=== PATIENT | male | born 1950 | race Hispanic/Latino ===

== ENCOUNTER 2016-07-09 09:49 | Inpatient (IN) | payer OTHER ==
--- NOTE | 2016-07-09 10:54 | ED PDOC ---
Arrival/HPI - General Historian: Patient - History of Present Illness Time/Duration: 4-6 hours Symptom Onset: Sudden Symptom Course: Resolved Quality: Pressure, Throbbing Severity Level: 5 Activities at Onset: Rest Context: Home - General Chief Complaint: Palpitations Time Seen by Provider: 07/09/16 10:01 - History of Present Illness Narrative History of Present Illness (Text): 07/09/16 10:51 This is a 65Y M with PMH of HLD and thalassemia minor who came to ED for palpitations for 4hrs this morning. He reports it started at 3am and woke him out of his sleep. He was seeing flashing lights at the time. He has had SVT in the past after drinking too many caffinated drinks a few years ago. He denies having excessive caffeine, drugs or alcohol before he went to bed. The patient says that he did not have chest pain at the time or SOB, but did have diaphoresis. The palpitations went away on their own. At this time he denies CP , SOB, n/v/d, numbness/tingling or vision changes. 07/09/16 11:32 (Margaret Shaver) Past Medical History - Provider Review Nursing Documentation Reviewed: Yes - Infectious Disease Hx of Infectious Diseases: None - Tetanus Immunization Tetanus Immunization: Unknown - Cardiac Hx Pacemaker: No Other/Comment: One episode of SVT in the past. - Pulmonary Hx Respiratory Disorders: No - Neurological Hx Paralysis: No - HEENT Hx HEENT Disorder: (WEARS RX GLASSES) - Renal Hx Renal Disorder: No - Endocrine/Metabolic Hx Endocrine Disorders: No - Hematological/Oncological Hx Blood Transfusions: No Hx Blood Transfusion Reaction: No - Integumentary Hx Dermatological Disorder: No - Musculoskeletal/Rheumatological Hx Musculoskeletal Disorders: No - Gastrointestinal Hx Gastrointestinal Disorders: No (H/O OF GI BLEED) Hx Gastroesophageal Reflux: Yes - Genitourinary/Gynecological Hx Genitourinary Disorders: No - Psychiatric Hx Emotional Abuse: No Hx Physical Abuse: No Hx Substance Use: No - Anesthesia Hx Anesthesia Reactions: No Hx Malignant Hyperthermia: No - Suicidal Assessment Feels Threatened In Home Enviroment: No Family/Social History - Physician Review Nursing Documentation Reviewed: Yes Family/Social History: No Known Family HX Smoking Status: Never Smoked Hx Alcohol Use: No Hx Substance Use: No Allergies/Home Meds Allergies/Adverse Reactions: Allergies No Known Allergies Allergy (Verified 07/09/16 10:08) Home Medications: Home Meds Medication Instructions Recorded Confirmed Rosuvastatin Calcium [Crestor] 5 mg PO DAILY 11/29/15 07/09/16 Aspirin [Aspirin Chewable] 81 mg PO DAILY 07/09/16 07/09/16 Review of Systems - Physician Review All systems were reviewed & negative as marked: Yes - Review of Systems Constitutional: Normal. absent: Fevers Eyes: Vision Changes ENT: Normal. absent: Hearing Changes Respiratory: Normal. absent: SOB, Cough Cardiovascular: Palpitations. absent: Chest Pain Gastrointestinal: Normal. absent: Abdominal Pain, Diarrhea, Nausea, Vomiting Genitourinary Male: Normal. absent: Dysuria, Frequency Musculoskeletal: Normal. absent: Arthralgias Skin: Normal. absent: Rash, Pruritis Neurological: Normal. absent: Headache, Dizziness Endocrine: Diaphoresis. absent: Polyuria, Polydipsia Psychiatric: Normal. absent: Anxiety, Depression Physical Exam Vital Signs Reviewed: Yes Temperature: Afebrile Blood Pressure: Normal Pulse: Regular Respiratory Rate: Normal Appearance: Positive for: Well-Appearing, Non-Toxic, Comfortable Pain Distress: None Mental Status: Positive for: Alert and Oriented X 3 - Systems Exam Head: Present: Atraumatic, Normocephalic Pupils: Present: PERRL Extroacular Muscles: Present: EOMI Conjunctiva: Present: Normal Mouth: Present: Moist Mucous Membranes Neck: Present: Normal Range of Motion Respiratory/Chest: Present: Clear to Auscultation, Good Air Exchange. No: Respiratory Distress, Accessory Muscle Use Cardiovascular: Present: Regular Rate and Rhythm, Normal S1, S2. No: Murmurs Abdomen: Present: Normal Bowel Sounds. No: Tenderness, Distention, Peritoneal Signs Back: Present: Normal Inspection Upper Extremity: Present: Normal Inspection. No: Cyanosis, Edema Lower Extremity: Present: Normal Inspection. No: Edema Neurological: Present: GCS=15, CN II-XII Intact, Speech Normal Skin: Present: Warm, Dry, Normal Color. No: Rashes Psychiatric: Present: Alert, Oriented x 3, Normal Insight, Normal Concentration Vital Signs Temp Pulse Resp BP Pulse Ox 07/09/16 12:04 72 18 108/76 100 07/09/16 10:08 98 F 72 16 96/63 L 100 Medical Decision Making Re-evaluation Time: 11:32 Reassessment Condition: Unchanged - Lab Interpretations I have reviewed the lab results: Yes Interpretation: Abnormal lab values (elevated troponin) - RAD Interpretation Inventory Planner: ED Physician - EKG Interpretation Interpreted by ED Physician: Yes Type: 12 lead EKG ED Course and Treatment: 07/09/16 10:57 Impression: This is a 65Y M with PMH HLD here for chest palpitation since this AM. DDX: SVT, Angina Plan: -- EKG -- CBC, CMP, Troponin --Reassess Prior Visits: Notes and results from previous visits were reviewed. 07/09/16 12:20 Progress Note: Patient noted to have elevated troponin. Potassium elevated. Will recheck. Spoke with Dr. Harrell who accepts the patient. 07/09/16 12:40 (Margaret Shaver) Patient Seen With Resident: In agreement with resident note. Patient was seen and evaluated with resident, came up with plan and treatment together. (Ta Fang DO) - Lab Interpretations Lab Results: 07/09/16 10:35 07/09/16 12:00 Lab Results 07/09/16 12:00: Potassium 4.6 07/09/16 10:35: TSH 3rd Generation 2.44 07/09/16 10:35: Sodium 138, Potassium 5.4 H, Chloride 103, Carbon Dioxide 29, Anion Gap 11, BUN 22 H, Creatinine 1.3, Est GFR ( Amer) > 60, Est GFR ( Non-Af Amer) 55, Random Glucose 70, Calcium 9.7, Total Bilirubin 0.6, AST 30, ALT 38, Alkaline Phosphatase 44, Lactate Dehydrogenase 372, Total Creatine Kinase 121, Troponin I 0.28 H* D, Total Protein 6.9, Albumin 4.1, Globulin 2.8, Albumin/Globulin Ratio 1.5 07/09/16 10:35: WBC 9.5 D, RBC 5.22, Hgb 10.8 L, Hct 33.3 L, MCV 63.8 L, MCH 20.7 L, MCHC 32.4, RDW 15.9 H, Plt Count 214 - RAD Interpretation Narrative RAD Interpretations (Text): 07/09/16 11:32 CXR showed no active disease. (Margaret Shaver) Radiology Orders: 07/09/16 10:21 CXR [CHEST PORTABLE] [RAD] Stat - EKG Interpretation EKG Interpretation (Text): 07/09/16 11:03 HR 70. Interval within normal limits. Sinus rhythm. (Margaret Shaver) - Medication Orders Current Medication Orders: Discontinued Medications Aspirin (Aspirin) 325 mg PO STAT STA Stop: 07/09/16 12:07 Last Admin: 07/09/16 12:15 Dose: 325 mg Disposition/Present on Arrival - Present on Arrival Any Indicators Present on Arrival: Yes History of DVT/PE: No History of Uncontrolled Diabetes: No Urinary Catheter: No History of Decub. Ulcer: No History Surgical Site Infection Following: None - Disposition Have Diagnosis and Disposition been Completed?: Yes Disposition Time: 12:10 Patient Plan: Admission - Disposition Diagnosis: Elevated troponin, NSTEMI (non-ST elevated myocardial infarction) Disposition: HOSPITALIZED Patient Problems: Current Active Problems Problem Status Onset Elevated troponin Acute NSTEMI (non-ST elevated myocardial infarction) Acute Condition: GOOD Print Language: FIJIAN Referrals: Max Cash MD [Primary Care Provider] - Follow up with primary
[2016-07-09 10:58] LABS: HEMATOCRIT 33.3 % (42.0-52.0); MEAN CELL VOLUME 63.8 fL (80.0-105.0); MEAN CORPUSCULAR HEMOGLOBIN 20.7 pg (25.0-35.0); MEAN CORPUSCULAR HGB CONC 32.4 g/dl (31.0-37.0); PLATELET COUNT 214 10^3/uL (120.0-450.0); RED CELL DISTRIBUTION WIDTH 15.9 % (11.5-14.5); WHITE BLOOD COUNT 9.5 10^3/ul (4.5-11.0)
[2016-07-09 11:04] LABS: ALB/GLOB RATIO 1.5 (1.1-1.8); ALKALINE PHOSPHATASE 44 U/L (38-133); ALT/SGPT 38 U/L (7-56); AST/SGOT 30 U/L (15-59); BILIRUBIN,TOTAL 0.6 mg/dL (0.2-1.3); BLOOD UREA NITROGEN 22 mg/dL (7-21); CALCIUM 9.7 mg/dL (8.4-10.5); CARBON DIOXIDE 29 mmol/L (21-33); CHLORIDE 103 mmol/L (98-107); GFR AFRICAN-AMERICAN > 60; GLUCOSE,RANDOM 70 mg/dL (70-110); POTASSIUM 5.4 mmol/L (3.6-5.0); SODIUM 138 mmol/L (132-148); TOTAL PROTEIN 6.9 g/dL (5.8-8.3)
[2016-07-09 11:56] LABS: TROPONIN I 0.28 ng/mL
--- NOTE | 2016-07-09 12:43 | RAD ---
HISTORY: chest pain COMPARISON: 03/31/2013 FINDINGS: LUNGS: No active pulmonary disease. PLEURA: No significant pleural effusion identified, no pneumothorax apparent. CARDIOVASCULAR: Normal. OSSEOUS STRUCTURES: No significant abnormalities. VISUALIZED UPPER ABDOMEN: Normal. OTHER FINDINGS: None. IMPRESSION: No active disease.
[2016-07-09] MEDS ORDERED: Phenylephrine 10 mg/ml Inj ONE (16:31)
[2016-07-09] MEDS ORDERED: Lidocaine 2% Inj (20ml) ONE (16:31)
[2016-07-09] MEDS ORDERED: Midazolam 2 MG/2 ML VIAL ONE (16:31)
[2016-07-09] MEDS ORDERED: Iodixanol 320 MG/ML 100 ML BOTTLE IV ONE (16:32)
[2016-07-09] MEDS ORDERED: Iohexol 350mgl/ml 50 ML ONE (16:32)
[2016-07-09] MEDS ORDERED: Eptifibatide 20 mg/10mL Inj IVP ONE (16:32)
[2016-07-09] MEDS ORDERED: Iodixanol 320 MG/ML 200 ML BOTTLE IV ONE (16:32)
[2016-07-09] MEDS ORDERED: Nitroglycerin 50mg in D5W 50 MG/250 ML BOTTLE IV ONE (16:32)
[2016-07-09] MEDS ORDERED: Bacitracin 500 Units/gm Oint Foilpak UD TOP ONE (17:47)
[2016-07-09] MEDS ORDERED: Sodium Chloride 0.9% 1,000 ML IV SCH (18:00)
--- NOTE | 2016-07-09 18:38 | CARD ---
APPROVED REPORT EKG Measurement Heart [id number] <Conclusion> Normal sinus rhythm with sinus arrhythmia Early repolarization Normal ECG
--- NOTE | 2016-07-09 18:59 | CARD ---
APPROVED REPORT Procedure(s) performed: Left Heart Catheterization HISTORY The patient is a 65 year-old male with a history of : dyslipidemia , Hx of hyperlipidemia admitted with palpitation and positive troponin( 0.28). INDICATION The indication(s) include : non-STEMI . CASE TECHNIQUE The patient was brought emergently to the Cardiac Catheterization Laboratory in a fasting state and was prepped and draped in a sterile manner. The left wrist was infiltrated with 2% Lidocaine subcutaneous anesthesia. A 6 Fr Glidesheath (Radial) sheath was inserted into the left radial artery without difficulty. Coronary angiography was performed using coronary diagnostic catheters. The left coronary system was accessed and visualized with a Diagnostic ,5 Fr JL 4 catheter. The right coronary system was accessed and visualized with a Diagnostic ,6 Fr AL 1 catheter. The left ventricle was accessed and visualized with a 5 Fr Pigtail 145 (Angled) catheter. Left ventricular/Aortic Valve gradient assessed on pullback. Left ventriculogram was performed in QUACH projection. The patient tolerated the procedure well and there were no complications associated with the procedure. Vessel Analysis The patient's coronary anatomy is left dominant. The left main coronary artery is a large size vessel without significant stenosis. The left main bifurcates to the left anterior descending and circumflex. The left anterior descending artery is a medium size vessel with intimal irregularities. The first diagonal branch is a medium size vessel with intimal irregularities. The circumflex artery is a large size vessel without significant stenosis. The first obtuse marginal branch is a medium size vessel with intimal irregularities. The second obtuse marginal branch is a small size vessel with intimal irregularities. The third obtuse marginal branch is a large size vessel without significant stenosis. The left posterior descending artery is a large size vessel without significant stenosis. The right coronary artery is a medium size vessel with intimal irregularities and without significant stenosis. Left Ventricle The left ventricle is normal in size with normal contractility. There was no cardiomyopathy. The left ventricular ejection fraction is estimated to be 65%. The left ventricular end diastolic pressure is 15 mmHg. There was no gradient across the aortic valve upon pullback. Conclusion Non obstructive CAD, intimal Irreularities ( essential Normal Coronaries) Preserved LV FX.EF-60-65%, EDP-15 Recommendations Aggressive Medical TherapyCardiac Risk Reduction Program Weight Loss Reduction Program CC: israel Cash/ Orville Harrell.
--- NOTE | 2016-07-09 20:10 | CON ---
DATE: 07/09/2016 REASON FOR CONSULTATION: Qhk-[id number] myocardial infarction, coronary artery disease. 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 Then patient came to work here but feeling not right, so in the middle of the work, patient went to the ER to check it out. Troponin came out positive at 0.28 and EKG shows questionable mild ST elevation with early repolarization. The patient denies any chest pain. PAST HISTORY: Significant for hyperlipidemia. SOCIAL HISTORY: Denies any smoking. Denies any history of alcohol abuse. ALLERGIES: No known drug allergy. CURRENT MEDICATIONS: Taking aspirin and Crestor 5 mg daily. PAST HISTORY: Also significant for patient had history of taking a high protein diet which contained a lot of sympatomimetic drugs and that causes a tachycardia. Was admitted in 03/2013. Since then, patient has no significant history. REVIEW OF SYSTEMS: a 14 point review of systems as per HPI. PHYSICAL EXAMINATION: As follows: VITAL SIGNS: Temperature afebrile, heart rate 64, blood pressure 131/73. HEENT: PERRLA. Extraocular muscles intact. NECK: Supple. No carotid bruits. No thyromegaly. CHEST: Clear to auscultation. HEART: S1, S2 regular. ABDOMEN: Soft. EXTREMITIES: Clubbing and cyanosis negative. BLOOD WORKUP: WBC 9.5, hemoglobin 10.8, hematocrit 33.3, platelet count 214. Chemistry shows sodium 130, potassium 5.4, chloride 103, carbon dioxide 20, anion gap of 24, BUN 11, creatinine 1.3. Troponin 0.28. IMPRESSION: Ucs-XK-[id number] myocardial infarction, cannot rule out underlying coronary artery disease. Non-ST myocardial infarction, cannot rule out acute coronary syndrome, suggestive of [id number] myocardial infarction. So, we will discuss with the family, discuss with the patient's brother, Artemio Bui, who is physician at [employer] agreed to take to the laborer syrup machine, so we will give 300 Plavix, aspirin and we will take to the laborer syrup machine. Further recommendation after laborer syrup machine findings. Thank you Dr. Harrell for providing us the opportunity in taking care of the patient. Mil Boogie MD cc: uW Harrell MD [id number] TT: 07/09/2016 20:10:29 Confirmation # [id number] Dictation # [id number] sn MTDD
[2016-07-09 21:27] VITALS: BMI 26.1
[2016-07-09] MEDS ORDERED: Pneumococcal 23-Valent Vaccine IM ONE (21:28)
[2016-07-09] MEDS ORDERED: Bacitracin 500 Units/gm Oint Foilpak UD ONE (23:41)
[2016-07-10 00:38] VITALS: RESP 20; O2SAT 98
[2016-07-10 06:50] VITALS: BP 118/85; PULSE 75; TEMP 97.7
[2016-07-10 06:52] LABS: ADD MANUAL DIFF? NO
[2016-07-10 06:59] LABS: BASO # 0.04 K/mm3 (0.0-2.0); BASO % 0.5 % (0.0-3.0); EOS # 0.3 (0.0-0.7); EOS % 3.4 % (1.5-5.0); GRAN # 5.18 (1.4-6.5); GRAN % 61.2 % (50.0-68.0); HEMATOCRIT 32.7 % (42.0-52.0); LYMPH # 2.4 (1.2-3.4); LYMPH % 28.4 % (22.0-35.0); MEAN CELL VOLUME 63.5 fL (80.0-105.0); MEAN CORPUSCULAR HEMOGLOBIN 20.6 pg (25.0-35.0); MEAN CORPUSCULAR HGB CONC 32.4 g/dl (31.0-37.0); MONO # 0.6 (0.1-0.6); MONO % 6.5 % (1.0-6.0); PLATELET COUNT 223 10^3/uL (120.0-450.0); WHITE BLOOD COUNT 8.5 10^3/ul (4.5-11.0)
[2016-07-10 07:14] LABS: ALB/GLOB RATIO 1.4 (1.1-1.8); ALKALINE PHOSPHATASE 44 U/L (38-133); ALT/SGPT 38 U/L (7-56); AST/SGOT 31 U/L (15-59); BILIRUBIN,TOTAL 0.6 mg/dL (0.2-1.3); BLOOD UREA NITROGEN 18 mg/dL (7-21); CALCIUM 9.2 mg/dL (8.4-10.5); CARBON DIOXIDE 28 mmol/L (21-33); CHLORIDE 110 mmol/L (98-107); CHOLESTEROL 136 mg/dL (130-200); GFR AFRICAN-AMERICAN > 60; GLUCOSE,RANDOM 92 mg/dL (70-110); MAGNESIUM 2.1 mg/dL (1.7-2.2); PHOSPHOROUS 3.6 mg/dL (2.5-4.5); POTASSIUM 4.9 mmol/L (3.6-5.0); SODIUM 143 mmol/L (132-148); TOTAL PROTEIN 6.6 g/dL (5.8-8.3)
[2016-07-10 10:40] LABS: IRON 59 ug/dL (45-180)
--- NOTE | 2016-07-10 11:12 | PN ---
DATE: 07/10/2016 REASON FOR CONSULTATION: Tgx-[id number] myocardial infarction, positive troponin, acute coronary syn drome, status post cardiac catheterization, nonobstructive coronary artery disease. 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 Troponin 0.28. The patient was taken ____ EKG shows a questionable history of ST elevation versus more of ST elevation with early repolarization. EKG sh ows questionable history of ST elevation 0.5 mm versus early repolarization. The patient was taken t o the [employer] [facility] laborer yesterday. Cardiac catheterization revealed nonobstructive CAD, luminal ____ no flow obstructive stenosis, preserved LV function. Denies any chest pain, shortness of breath, any palpita tion. PHYSICAL EXAMINATION: VITAL SIGNS: Temperature afebrile, heart rate 75, blood pressure 118/85. HEENT: PERRLA. Extraocular muscles intact. NECK: Supple. No carotid bruits. No thyromegaly. CHEST: Clear to auscultation. HEART: S1, S2 regular. ABDOMEN: Soft. EXTREMITIES: Clubbing, cyanosis negative. WBC 8.5, hemoglobin 10.____, hematocrit 32.7, platelet count 223. Chemistry shows sodium 143, potass ium 4.9, chloride 110, carbon dioxide 28, anion gap of 10, BUN 8, creatinine 1.0. TSH 2.09. Triglyc eride 118, cholesterol 136, LDL 76, HDL 41. Hemoglobin A1c pending. IMPRESSION: Acute coronary syndrome, possibly troponin 0.28, status post cardiac catheterization, no nobstructive coronary artery disease, luminal ____ no flow obstructive stenosis noted, preserved left ventricular function. RECOMMENDATION: Continue baby aspirin. Continue Crestor. Emphasis on weight reduction, modificatio n of lifestyle, modification of risk factors for coronary artery disease. Suggest to have ____. We will follow hemoglobin A1c. Cardiac catheterization done with left radial approach with distal 2+ no carol in the left radial puncture site distal to the puncture. Left radial artery has a good bounding pulse. Will discharge home when the daughter comes at 1:30 and continue interim ____ 5 mg of ____ 5 mg of Crestor. We will follow with you. We will get echo to assess left ventricular function. Thank you, Dr. Harrell, for providing us the opportunity in taking care of the patient. Mil Boogie MD cc: [id number] TT: 07/10/2016 10:27:19 Confirmation # [id number] Dictation # [id number] en 07/10/2016 10:12:18
--- NOTE | 2016-07-10 13:30 | HP ---
CHIEF COMPLAINT AND HISTORY OF PRESENT ILLNESS: This is a 65-year-old male who is coming into the [facility] with a past medical history of dyslipidemia and thalassemia minor. The patient has been havin g palpitations. He says that he initially woke up at 3 a.m. and was having visual issues. He was se eing bright lights around things. He was not able to read his emails. He said that he came into wor and still was not feeling well. He has a history of having SVT after drinking too many caffeinated drinks a few years ago. Otherwise, he has been fairly healthy. He denied any chest pain. He has n o diaphoresis, no nausea, no vomiting. He states he did have diaphoresis prior to coming into the ER . 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 He has no complaints of any fevers or chills. He w as found to have an elevated troponin, so he was admitted for further evaluation. The patient was se en by Dr. Boogie and was taken to the labor relations specialist for evaluation. All other review of symptoms are within normal limits except as mentioned. PAST MEDICAL HISTORY: Dyslipidemia, thalassemia minor. MEDICATIONS: He is on Crestor. FAMILY HISTORY: Noncontributory. PHYSICAL EXAMINATION: VITAL SIGNS: He has a temperature of 97.7, pulse of 74, blood pressure is 118/85, respirations 20, O 2 saturation 95%. Height is 5 feet 10 inches. Weight is 187 pounds. BMI is 26. GENERAL: The patient lying in bed, flat, and in no apparent distress. HEAD AND NECK EXAM: Atraumatic, normocephalic. Conjunctivae are pink. Throat clear and mouth with moist mucosa. Oropharynx benign. EYES: Extraocular movements are intact. PERRLA. NECK: Supple. No JVD, thyromegaly, or adenopathy. No bruits. HEART: S1 and S2 regular rate and rhythm. No murmurs, rubs, or gallops. LUNGS: Clear to auscultation bilaterally. No wheezing rales or rhonchi appreciated. No retraction s on exam. ABDOMEN: Soft, nontender, nondistended. Bowel sounds are positive in all quadrants. No rebound. No hepatosplenomegaly. EXTREMITIES: No cyanosis, clubbing, or edema. NEUROLOGIC: No facial asymmetry, tongue is midline, no uvula deviation. Power is 5/5 in upper extr emity and 5/5 in lower extremity. Sensation is normal in upper extremity and lower extremity. PSYCHIATRIC: Awake, alert, oriented x 3. No anxiety or depression symptoms. Good insight. Lindsey l affect. GENITOURINARY: No CVA tenderness VASCULAR: 2+ pulses in carotid and pedal pulses. SKIN: No erythema or abnormal nodules noted. SPINE: Normal curvature. LYMPHADENOPATHY: No anterior cervical or posterior cervical adenopathy. No inguinal adenopathy. LABORATORIES: Reviewed. White count was 5.4, repeat is 4.9. Creatinine is 1.2. Troponin 0.28. Wh ite count was 9.5, hemoglobin 10.8. Chest x-ray done shows no active disease. The EKG showed sinus rhythm at [address]-T wave abnorm alities. ASSESSMENT: 1. Palpitations. 2. Dyslipidemia. 3. Thalassemia minor. PLAN: The patient had a cardiac cath and showed nonobstructive coronary disease. He had good ejecti on fraction of 60%-65%. This did not look like typical myocardial infarction. He had no significant EKG changes, although he did have elevated troponin, but his coronary artery disease is normal. I a m not sure if this is from a variant of Prinzmetal's angina from vasospasms. He does not take any millard pplements or other medications. He has no other associated symptoms that could explain this. I am n ot sure if this could be a false positive troponin, which is also less likely. He is going to be dis charged home. Dr. Boogie has Okayed the discharge. He has an echo that is pending. He is going to co ntinue his Crestor. Wu Harrell MD cc: [id number] TT: 07/10/2016 12:10:10 en
== END 2016-07-10 13:49 | disposition home or self-care (01) | DRG 287 ==
LOC: ED 09:49 → ERH 12:38 → 2RSO 15:29
PROVIDERS: ADMIT Internal Medicine Nephrology; ATTEND Internal Medicine Nephrology
PROC: 4A023N7 Measurement of Cardiac Sampling and Pressure, Left Heart, Percutaneous Approach (ICD-10-PCS; principal; 2016-07-09)
PROC: B211YZZ Fluoroscopy of Multiple Coronary Arteries using Other Contrast (ICD-10-PCS; 2016-07-09)
PROC: B215YZZ Fluoroscopy of Left Heart using Other Contrast (ICD-10-PCS; 2016-07-09)
DX: I24.9 Acute ischemic heart disease, unspecified (principal); I25.10 Atherosclerotic heart disease of native coronary artery without angina pectoris; R00.2 Palpitations; E78.5 Hyperlipidemia, unspecified; D56.3 Thalassemia minor